=== PATIENT | female | born 1970 | race African-American/Black ===

== ENCOUNTER → 2016-07-10 | Outpatient (CLI) | payer OTHER ==
[~2016-07-10] MED LIST: BAYETES; CIPR-9 PO; CYCL1TAB29 PO; GABA300C5 PO; METH125I2 IM; SUCR1TAB PO; [UNRECOGNIZED DRUG - CODE] IM
[2016-07-10 10:06] LABS: AUTOMATED NEUTROPHIL # 2.1 TH/MM3 (1.8-7.7); BASOPHIL # 0.1 TH/MM3 (0-0.2); BASOPHIL % 2.5 % (0.0-2.0); EOSINOPHIL # 0.1 TH/MM3 (0-0.4); EOSINOPHIL % 2.9 % (0.0-4.0); HEMATOCRIT 37.2 % (35.0-46.0); HEMO FLAGS DIFF FINAL; LYMPH % 38.7 % (9.0-44.0); LYMPHOCYTE # 1.7 TH/MM3 (1.0-4.8); MEAN CELL VOLUME 89.7 FL (80.0-100.0); MEAN CORPUSCULAR HEMOGLOBIN 29.3 PG (27.0-34.0); MEAN CORPUSCULAR HGB CONC 32.7 % (32.0-36.0); MONO % 7.9 % (0.0-8.0); PLATELET COUNT 288 TH/MM3 (150-450); RED BLOOD COUNT 4.15 MIL/MM3 (4.00-5.30); RED CELL DISTRIBUTION WIDTH 15.3 % (11.6-17.2); WHITE BLOOD COUNT 4.4 TH/MM3 (4.0-11.0)
[2016-07-10 11:39] LABS: ALKALINE PHOSPHATASE 53 U/L (45-117); ALT (GPT) 17 U/L (10-53); ANION GAP 7 MEQ/L (5-15); AST (GOT) 24 U/L (15-37); BICARBONATE 30.9 MEQ/L (21.0-32.0); BLOOD UREA NITROGEN 16 MG/DL (7-18); CHLORIDE 99 MEQ/L (98-107); GLOMERULAR FILTRATION RATE 67 ML/MIN (>89); GLUCOSE,FASTING 73 MG/DL (74-99); HDL CHOLESTEROL 66.2 MG/DL (40.0-60.0); LDL CHOLESTEROL 99 MG/DL (0-99); POTASSIUM 4.6 MEQ/L (3.5-5.1); SODIUM (NA) 137 MEQ/L (136-145); TOTAL BILIRUBIN ADULT 0.2 MG/DL (0.2-1.0)
[2016-07-10 14:12] LABS: HEMOGLOBIN A1a 0.9 %; HEMOGLOBIN A1b 1.1 %; HEMOGLOBIN F 1.6 %; HEMOGLOBIN LA1C 2.2 %; HEMOGLOBIN P3 6.8 %
== END ==
LOC: CLAB 09:36
PROVIDERS: ATTEND Family Medicine
DX: R63.0 Anorexia (principal); F39 Unspecified mood [affective] disorder; R94.6 Abnormal results of thyroid function studies; R92.8 Other abnormal and inconclusive findings on diagnostic imaging of breast; R73.09 Other abnormal glucose; Z72.0 Tobacco use
CPT/HCPCS: 36415; 80053; 80061; 83036; 84443; 85025

== ENCOUNTER 2016-11-21 07:33 | Emergency (ER) | payer OTHER ==
[~2016-11-21] VITALS: Ht 170.2 cm; Wt 50.0 kg
[~2016-11-21 07:33] MED LIST changes: -CIPR-9 PO; -METH125I2 IM; -[UNRECOGNIZED DRUG - CODE] IM
[2016-11-21] MEDS ORDERED: IOHEXOL 350 MG/ML 10 ML VIAL (for RAD DIAG) IVCONTRAST ONE (07:34)
[2016-11-21 07:37] VITALS: BP 136/88; PULSE 86; RESP 14; TEMP 98.4; O2SAT 96
[2016-11-21] MEDS ORDERED: SODIUM CHLOR 0.9% 1000 ML INJ 1,000 ML IV SCH (08:07)
[2016-11-21] MEDS ORDERED: ONDANSETRON HCL 4 MG/2 ML VIAL IVP ONE (08:15)
[2016-11-21] MEDS ORDERED: MORPHINE SULFATE 4 MG/ML INJ IV PUSH ONE (08:15)
[2016-11-21] MEDS ORDERED: FAMOTIDINE 20 MG/2 ML VIAL IV PUSH ONE (08:15)
[2016-11-21] MEDS ORDERED: SODIUM CHLORIDE 0.9% FLUSH 10 ML FLUSH IV FLUSH PRN (08:15)
[2016-11-21 08:21] VITALS: RESP 18; O2SAT 98
[2016-11-21 08:29] LABS: AUTOMATED NEUTROPHIL # 2.6 TH/MM3 (1.8-7.7); BASOPHIL % 0.4 % (0.0-2.0); EOSINOPHIL # 0.3 TH/MM3 (0-0.4); EOSINOPHIL % 4.5 % (0.0-4.0); HEMATOCRIT 36.9 % (35.0-46.0); HEMO FLAGS DIFF FINAL; LYMPH % 36.8 % (9.0-44.0); MEAN CELL VOLUME 87.8 FL (80.0-100.0); MEAN CORPUSCULAR HEMOGLOBIN 28.5 PG (27.0-34.0); MEAN CORPUSCULAR HGB CONC 32.4 % (32.0-36.0); MONO % 11.9 % (0.0-8.0); NEUT % 46.4 % (16.0-70.0); PLATELET COUNT 321 TH/MM3 (150-450); RED BLOOD COUNT 4.21 MIL/MM3 (4.00-5.30); RED CELL DISTRIBUTION WIDTH 15.5 % (11.6-17.2); WHITE BLOOD COUNT 5.6 TH/MM3 (4.0-11.0)
[2016-11-21 08:44] LABS: BACTERIA, URINE RARE /hpf; BLOOD, URINE MOD (NEG); COMMENT (UR) CULT NOT INDICATED; CULTURE IF INDICATED CULT NOT INDICATED; GLUCOSE,URINE NEG (NEG); KETONE, URINE NEG (NEG); MUCUS URINE FEW /lpf (OCC); NITRITE,URINE NEG (NEG); PH, URINE 5.5 (5.0-8.5); SQUAMOUS EPITHELIAL CELL URINE 1 /hpf (0-5); URINE COLOR YELLOW (YELLW/STRAW)
--- NOTE | 2016-11-21 08:45 | PD ---
HPI . Abdominal pain and vomiting Chief Complaint: Respiratory Symptoms Time Seen by Provider: 08:07 Travel History International Travel<30 days: No Contact w/Intl Traveler<30days: No Traveled to known affect area: No History of Present Illness HPI The history that I got from the patient seems to be different than the history that the nurse obtained. The patient is chief complaint to me was abdominal pain and vomiting. Onset was a week ago. She reports 3 episodes of emesis since 2 AM. She states she's been having about 5 episodes of emesis a day for the last week. This is associated with severe upper abdominal pain. She denies diarrhea. She states that she cannot eat and that her food seems to be getting stuck in the top of her abdomen. She states that her pain is exacerbated by bending forward and her symptoms are relieved by isabella rm. She states that she has a previous history of peptic ulcer disease. Reports decreased urinary output during this past week. PFSH Past Medical History Anemia: Yes Depression: Yes Diminished Hearing: No Endocrine: Yes (hyperthyroid) Hypertension: Yes Immunizations Current: Yes Migraines: Yes Thyroid Disease: Yes (HYPERTHYROID) Ulcer: Yes ?: Not Menopausal: Yes : 0 Para: 0 Ovarian Cysts: Yes Past Surgical History Gynecologic Surgery: Yes (LT OVARIAN CYST) Hysterectomy: Yes Tonsillectomy: Yes Social History Alcohol Use: No (OCC) Tobacco Use: Yes (10 CIGARETTES A DAY ) Substance Use: No Allergies-Medications (Allergen,Severity, Reaction): Coded Allergies: acetaminophen (Verified Allergy, Severe, ABD PAIN, 11/21/16) hydrocodone (Verified Allergy, Severe, NAUSEA, 11/21/16) penicillin G (Verified Allergy, Severe, BLACK TONGUE, 11/21/16) BLACK TONUGE propoxyphene (Verified Allergy, Severe, ABD PAIN, 11/21/16) Reported Meds & Prescriptions Reported Meds & Active Scripts Active Gabapentin 300 Mg Cap 300 Mg PO TID [place] Contour Blood Glucose Strips (Blood Glucose Test Strips) 1 Jennifer Jennifer 1 Strip .ROUTE DIRECTED Reported Sucralfate 1 Gm Tab 1 Gm PO TID on empty stomach Review of Systems Except as stated in HPI: all other systems reviewed are Neg General / Constitutional: Positive: Fever, No: Chills HENT: Positive: Headaches Cardiovascular: No: Chest Pain or Discomfort Respiratory: No: Shortness of Breath Gastrointestinal: Positive: Nausea, Vomiting, Abdominal Pain, No: Diarrhea Genitourinary: Positive: Decreased Urinary Output, No: Urgency, Frequency, Dysuria Physical Exam Narrative GENERAL: Patient is awake and alert and does not appear to be in any acute distress. SKIN: warm/dry. No rashes. HEAD: Normocephalic. Atraumatic. EYES: Pupils equal and round. No scleral icterus. No injection or drainage. ENT: No nasal bleeding or discharge. Mucous membranes pink and moist. Her tongue is stained a blue color from recent Dion-Aid. NECK: Trachea midline. Full range of motion without pain.. CARDIOVASCULAR: Regular rate and rhythm. Heart sounds are normal. RESPIRATORY: No accessory muscle use. Clear to auscultation. Breath sounds equal bilaterally. GASTROINTESTINAL: Abdomen soft. Diffuse tenderness with maximal tenderness in the upper abdomen. Bowel sounds present. Nondistended. MUSCULOSKELETAL: No obvious deformities. NEUROLOGICAL: Awake and alert. No obvious cranial nerve deficits. Motor grossly within normal limits. Normal speech. PSYCHIATRIC: Appropriate mood and affect; insight and judgment normal. Data Data Last Documented VS Vital Signs Date Time Temp Pulse Resp B/P (MAP) Pulse Ox O2 Delivery O2 Flow Rate FiO2 11/21/16 08:21 18 98 Room Air 11/21/16 07:37 98.4 86 Orders Orders Complete Blood Count With Diff (11/21/16 08:07) Comprehensive Metabolic Panel (11/21/16 08:07) Lipase (11/21/16 08:07) Lactic Acid (11/21/16 08:07) Urinalysis - C+S If Indicated (11/21/16 08:07) Ct Abd/Pel W Iv Contrast(Rout) (11/21/16 08:07) Iv Access Insert/Monitor (11/21/16 08:07) Ecg Monitoring (11/21/16 08:07) Oximetry (11/21/16 08:07) Morphine Inj (Morphine Inj) (11/21/16 08:15) Ondansetron Inj (Zofran Inj) (11/21/16 08:15) Sodium Chlor 0.9% 1000 Ml Inj (Ns 1000 M (11/21/16 08:07) Sodium Chloride 0.9% Flush (Ns Flush) (11/21/16 08:15) Electrocardiogram (11/21/16 08:07) Famotidine Inj (Pepcid Inj) (11/21/16 08:15) Iohexol 350 Inj (Omnipaque 350 Inj) (11/21/16 07:34) Labs Laboratory Tests Test 11/21/16 08:20 White Blood Count 5.6 TH/MM3 Red Blood Count 4.21 MIL/MM3 Hemoglobin 12.0 GM/DL Hematocrit 36.9 % Mean Corpuscular Volume 87.8 FL Mean Corpuscular Hemoglobin 28.5 PG Mean Corpuscular Hemoglobin Concent 32.4 % Red Cell Distribution Width 15.5 % Platelet Count 321 TH/MM3 Mean Platelet Volume 7.3 FL Neutrophils (%) (Auto) 46.4 % Lymphocytes (%) (Auto) 36.8 % Monocytes (%) (Auto) 11.9 % Eosinophils (%) (Auto) 4.5 % Basophils (%) (Auto) 0.4 % Neutrophils # (Auto) 2.6 TH/MM3 Lymphocytes # (Auto) 2.0 TH/MM3 Monocytes # (Auto) 0.7 TH/MM3 Eosinophils # (Auto) 0.3 TH/MM3 Basophils # (Auto) 0.0 TH/MM3 CBC Comment DIFF FINAL Differential Comment Urine Color YELLOW Urine Turbidity CLEAR Urine pH 5.5 Urine Specific [place] 1.023 Urine Protein NEG mg/dL Urine Glucose (UA) NEG mg/dL Urine Ketones NEG mg/dL Urine Occult Blood MOD Urine Nitrite NEG Urine Bilirubin NEG Urine Urobilinogen LESS THAN 2.0 MG/DL Urine Leukocyte Esterase NEG Urine RBC 7 /hpf Urine WBC 1 /hpf Urine Squamous Epithelial Cells 1 /hpf Urine Bacteria RARE /hpf Urine Mucus FEW /lpf Microscopic Urinalysis Comment CULT NOT INDICATED Blood Urea Nitrogen 12 MG/DL Creatinine 1.05 MG/DL Random Glucose 82 MG/DL Total Protein 7.3 GM/DL Albumin 3.8 GM/DL Calcium Level 9.3 MG/DL Alkaline Phosphatase 64 U/L Aspartate Amino Transf (AST/SGOT) 22 U/L Alanine Aminotransferase (ALT/SGPT) 13 U/L Total Bilirubin 0.2 MG/DL Sodium Level 138 MEQ/L Potassium Level 3.6 MEQ/L Chloride Level 104 MEQ/L Carbon Dioxide Level 27.1 MEQ/L Anion Gap 7 MEQ/L Estimat Glomerular Filtration Rate 68 ML/MIN Lactic Acid Level 1.1 mmol/L Lipase 93 U/L [facility] Medical Decision Making Medical Screen Exam Complete: Yes Emergency Medical Condition: Yes Medical Record Reviewed: Yes (her main medical issues for which she is followed as an outpatient is prediabetes and malnutrition with a low BMI.) Interpretation(s) EKG shows a sinus rhythm with no acute ischemic change. Differential Diagnosis Differential diagnosis of abdominal pain includes but is not limited to gastritis, pancreatitis, hepatitis, gastroenteritis, gallbladder disease, constipation, urinary retention, UTI, peptic ulcer disease, diverticulitis or appendicitis Narrative Course This patient presents with upper abdominal pain and vomiting. She reports a history of previous peptic ulcer disease. She has been ill for 5 days and has not been tolerating by mouth food or fluids well. She reports a decreased urinary output. She is being fluid resuscitated pending her workup. CBC & BMP Diagram 11/21/16 08:20 Total Protein 7.3, Albumin 3.8, Calcium Level 9.3, Alkaline Phosphatase 64, Aspartate Amino Transf (AST/SGOT) 22, Alanine Aminotransferase (ALT/SGPT) 13, Total Bilirubin 0.2 LA is normal at 1.1. UA>>SG 1.023. No evidence of infection. CT abd/pelvis>>No evidence of inflammatory process within the abdomen or pelvis. No evidence of bowel obstruction. Diffusely noted groundglass opacities within the lung bases have resolved. No current abnormalities are noted. No acute problem has been identified by laboratory and radiographic evaluation. In the meantime, the patient reports that she is markedly symptomatically improved. Diagnosis Primary Impression: Abdominal pain Qualified Codes: R10.84 - Generalized abdominal pain Additional Impression: Vomiting Qualified Codes: R11.2 - Nausea with vomiting, unspecified Patient Instructions: Abdominal Pain (ED), Acute Nausea and Vomiting (DC), General Instructions Med/Other Pt SpecificInfo: Prescription(s) given Scripts Ranitidine (Zantac) 150 Mg Tab 150 MG PO BID for Reduce Stomach Acid, #60 TAB 0 Refills Prov: Tawanna Olvera MD 11/21/16 Promethazine (Phenergan) 25 Mg Tablet 25 MG PO Q6H Y for NAUSEA OR VOMITING, #15 TAB 0 Refills Prov: Tawanna Olvera MD 11/21/16 Disposition: 01 DISCHARGE HOME Condition: Stable Tawanna Olvera MD Nov 21, 2016 08:45
[2016-11-21 08:51] LABS: ALT (GPT) 13 U/L (10-53)
[2016-11-21 08:54] LABS: ALKALINE PHOSPHATASE 64 U/L (45-117); TOTAL BILIRUBIN ADULT 0.2 MG/DL (0.2-1.0)
[2016-11-21 09:05] LABS: ANION GAP 7 MEQ/L (5-15); AST (GOT) 22 U/L (15-37); BICARBONATE 27.1 MEQ/L (21.0-32.0); BLOOD UREA NITROGEN 12 MG/DL (7-18); CHLORIDE 104 MEQ/L (98-107); GLOMERULAR FILTRATION RATE 68 ML/MIN (>89); POTASSIUM 3.6 MEQ/L (3.5-5.1); SODIUM (NA) 138 MEQ/L (136-145)
--- NOTE | 2016-11-21 09:20 | RADRPT ---
EXAM DATE/TIME: 11/21/2016 08:51 [facility] COMPARISON: CT ABDOMEN & PELVIS W CONTRAST, December 18, 2015, 5:37. INDICATIONS : Nausea and vomiting for one week. IV CONTRAST: 71 cc Omnipaque 350 (iohexol) IV ORAL CONTRAST: No oral contrast ingested. RADIATION DOSE: 4.51 CTDIvol (mGy) MEDICAL HISTORY : Hypertension. SURGICAL HISTORY : Hysterectomy. ENCOUNTER: Initial ACUITY: 1 week PAIN SCALE: 4/10 LOCATION: Bilateral lower quadrant TECHNIQUE: Volumetric scanning of the abdomen and pelvis was performed. Using automated exposure control and adjustment of the mA and/or kV according to patient size, radiation dose was kept as low as reasonably achievable to obtain optimal diagnostic quality images. DICOM format image data is av ailable electronically for review and comparison. FINDINGS: LOWER LUNGS: The visualized lower lungs are clear. The previously noted groundglass opacities hav e resolved. LIVER: Homogeneous density without lesion. There is no dilation of the biliary tree. No calcifi ed gallstones. SPLEEN: Normal size without lesion. PANCREAS: Within normal limits. KIDNEYS: Normal in size and shape. There is no mass, stone or hydronephrosis. ADRENAL GLANDS: Within normal limits. VASCULAR: There is no aortic aneurysm. BOWEL/MESENTERY: The stomach, small bowel, and colon demonstrate no acute abnormality. There is no free intraperitoneal air or fluid. ABDOMINAL WALL: Within normal limits. RETROPERITONEUM: There is no lymphadenopathy. BLADDER: No wall thickening or mass. REPRODUCTIVE: Surgically absent. INGUINAL: There is no lymphadenopathy or hernia. MUSCULOSKELETAL: Within normal limits for patient age. CONCLUSION: No evidence of inflammatory process within the abdomen or pelvis. No evidence of daniel l obstruction. Diffusely noted groundglass opacities within the lung bases have resolved. No current abnormalities are noted. Marlena Buenrostro MD on November 21, 2016 at 9:16 Board Certified Radiologist. This report was verified electronically.
[2016-11-21] MEDS ORDERED: ZANT150T2 PO (09:42)
[2016-11-21] MEDS ORDERED: PROM25TA10 PO (09:42)
--- NOTE | 2016-11-21 11:38 | EKG ---
Date Performed: 11/21/2016 Time Performed: 08:17:04 PTAGE: 46 years EKG: Sinus rhythm POSSIBLE RIGHT VENTRICULAR CONDUCTION DELAY LEFT ANTERIOR FASCICULAR BLOCK ANTEROSEPTAL MYOCARDIAL I NFARCTION, AGE UNDETERMINED ABNORMAL ECG PREVIOUS TRACING : 12/18/2015 03.58 No significant change from previous tracing noted. DOCTOR: Albert Chanel Interpretating Date/Time 11/21/2016 11:36:36
== END 2016-11-21 10:08 | disposition home or self-care (01) ==
LOC: NEPC 07:33
DX: R10.84 Generalized abdominal pain (principal); R11.2 Nausea with vomiting, unspecified; K27.9 Peptic ulcer, site unspecified, unspecified as acute or chronic, without hemorrhage or perforation; R51 Headache; D64.9 Anemia, unspecified; I44.4 Left anterior fascicular block; R94.31 Abnormal electrocardiogram [ECG] [EKG]; E05.90 Thyrotoxicosis, unspecified without thyrotoxic crisis or storm; I10 Essential (primary) hypertension
CPT/HCPCS: 74177; 80053; 81001; 83605; 83690; 85025; 93005; 96361; 96374; 96375; 99285; J2270; J2405; J7030; Q9967

== ENCOUNTER 2017-01-05 01:29 | Inpatient (IN) | payer OTHER ==
[2017-01-05] VITALS (8 sets, daily range): BP systolic 110–136; BP diastolic 57–97; PULSE 79–122; RESP 16–26; TEMP 96.5–99.5; O2SAT 93–100
[~2017-01-05] VITALS: Ht 170.2 cm; Wt 58.0 kg
[~2017-01-05 01:29] MED LIST changes: -CYCL1TAB29 PO; +PROM25TA10 PO; +ZANT150T2 PO
--- NOTE | 2017-01-05 02:01 | PD ---
HPI Chief Complaint: Abdominal Pain Time Seen by Provider: 01:31 Travel History International Travel<30 days: No Contact w/Intl Traveler<30days: No Traveled to known affect area: No History of Present Illness HPI The patient is 46 year old female who presents to the [facility] emergency department with a history of chronic abdominal pain that became much worse last night. She reports that it feels like it is associated with shortness of breath as taking a deep breath makes it worse. She has had a stabbing pain in her abdomen on both sides that began 3 weeks ago. The pain is sharp in character. The pain is coming and going. She has had n/v associated with this. The pain seems to get worse at night. She is having n/v x3 per day since the onset. She had loose stool x3 yesterday. She reports having tinges of blood in her emesis and blood in her stool. The patient reports that the symptoms are similar to when she was first diagnosed with peptic ulcer disease in 2013. She reports that this is managed by her primary care physician up until a few months ago. She reports that she was told that she would need endoscopy, however she has never had endoscopy. She reports that she's been out of her usual medications for this for the last 3 months. She reports having a subjective fever. The patient reports that she has been taking BC powder for pain. She also tried taking a prescription for tramadol. On review of systems otherwise, she denies having any cough, congestion, neck pain, chest pain, dysuria, urinary frequency or urgency, or neurologic symptoms. She has been experiencing difficulty starting her stream of urine. [facility] Past Medical History Narrative Medical The patient's past medical history is significant for peptic ulcer disease, anemia, depression. She has a history of hyperthyroid disorder that is status post treatment. PCP: none currently. Anemia: Yes Depression: Yes Diminished Hearing: No Endocrine: Yes (hyperthyroid) Hypertension: Yes Immunizations Current: Yes Migraines: Yes Thyroid Disease: Yes (HYPERTHYROID) Ulcer: Yes Influenza Vaccination: No ?: Not Menopausal: Yes : 0 Para: 0 Ovarian Cysts: Yes Past Surgical History Narrative Surgical The patient's past surgical history is significant for a hysterectomy, left ovarian cyst resection, tonsillectomy. Gynecologic Surgery: Yes (LT OVARIAN CYST) Hysterectomy: Yes Tonsillectomy: Yes Social History Alcohol Use: No (OCC) Tobacco Use: Yes (10 CIGARETTES A DAY ) Substance Use: No Allergies-Medications (Allergen,Severity, Reaction): Coded Allergies: acetaminophen (Verified Allergy, Severe, ABD PAIN, 01/05/17) hydrocodone (Verified Allergy, Severe, NAUSEA, 01/05/17) penicillin G (Verified Allergy, Severe, BLACK TONGUE, 01/05/17) BLACK TONUGE propoxyphene (Verified Allergy, Severe, ABD PAIN, 01/05/17) Reported Meds & Prescriptions Reported Meds & Active Scripts Active Zantac (Ranitidine HCl) 150 Mg Tab 150 Mg PO BID Phenergan (Promethazine HCl) 25 Mg Tablet 25 Mg PO Q6H PRN Gabapentin 300 Mg Cap 300 Mg PO TID [place] Contour Blood Glucose Strips (Blood Glucose Test Strips) 1 Jennifer Jennifer 1 Strip .ROUTE DIRECTED Reported Sucralfate 1 Gm Tab 1 Gm PO TID on empty stomach Narrative Medication tramadol for pain. Review of Systems General / Constitutional: No: Fever Eyes: No: Visual changes HENT: No: Headaches, Congestion Cardiovascular: Positive: Dyspnea on exertion, No: Chest Pain or Discomfort Respiratory: Positive: Shortness of Breath, No: Cough Gastrointestinal: Positive: Nausea, Vomiting, Diarrhea, Abdominal Pain, Hematemesis, Hematochezia, Changes in Bowel Habits, Indigestion, Loss of Appetite Genitourinary: No: Dysuria Musculoskeletal: No: Pain Skin: No Rash Neurologic: No: Weakness, Focal Abnormalities, Change in Mentation, Slurred Speech, Sensory Disturbance Psychiatric: No: Depression Endocrine: No: Polydipsia Hematologic/Lymphatic: No: Easy Bruising Physical Exam Narrative General: The patient is a well-developed well-nourished female who arrives uncomfortable appearing on examination, holding her abdomen, writhing in the bed. Head and Neck exam: Head is normocephalic atraumatic. Eyes: EOMI, pupils are equal round and reactive to light. Nose: Midline septum with pink mucous membranes Mouth: Dentition unremarkable. Moist mucus membranes. Posterior oropharynx is not erythematous. No tonsillar hypertrophy. Uvula midline. Airway patent. Neck: No palpable lymphadenopathy. No nuchal rigidity. No thyromegaly. Cardiovascular: Sinus tachycardia in the 1 teens without murmurs, gallops, or rubs. No pulse deficit to the extremities and simultaneous auscultation and palpation of her radial artery. Lungs: Clear to auscultation bilaterally. No wheezes, rhonchi, or rales. Abdomen: Soft, with tenderness on palpation in bilateral upper and lower quadrants of the abdomen. No specific point tenderness over McBurney's point. The patient has voluntary guarding. No rebound or rigidity. Extremities: No clubbing, cyanosis, or edema. 2+ pulses in all 4 extremities. No calf tenderness on palpation. Back: No spinous process tenderness to palpation. The patient reports bilateral CVA tenderness on palpation Neurologic Exam: Grossly nonfocal. Skin Exam: No rash noted. Intact skin that is warm and dry. Data Data Last Documented VS Vital Signs Date Time Temp Pulse Resp B/P (MAP) Pulse Ox O2 Delivery O2 Flow Rate FiO2 01/05/17 05:36 79 18 127/78 (94) 96 Nasal Cannula 2.00 01/05/17 01:33 98.8 Orders Orders Electrocardiogram (01/05/17 02:04) Complete Blood Count With Diff (01/05/17 02:04) Comprehensive Metabolic Panel (01/05/17 02:04) Creatine Kinase (Cpk) (01/05/17 02:04) Ckmb (Isoenzyme) Profile (01/05/17 02:04) Troponin I (01/05/17 02:04) B-Type Natriuretic Peptide (01/05/17 02:04) Lipase (01/05/17 02:04) Urinalysis - C+S If Indicated (01/05/17 02:04) Magnesium (Mg) (01/05/17 02:04) Chest, Single Ap (01/05/17 02:04) Iv Access Insert/Monitor (01/05/17 02:04) Ecg Monitoring (01/05/17 02:04) Oximetry (01/05/17 02:04) Ed Urine Pregnancytest Poc (01/05/17 02:04) Drug Screen, Random Urine (01/05/17 02:24) Sodium Chlorid 0.9% 500 Ml Inj (Ns 500 M (01/05/17 02:30) Pantoprazole Inj (Protonix Inj) (01/05/17 02:30) Ondansetron Inj (Zofran Inj) (01/05/17 02:30) Thyroid Stimulating Hormone (01/05/17 02:25) Ct Abd/Pel W Iv Contrast(Rout) (01/05/17 03:00) Morphine Inj (Morphine Inj) (01/05/17 03:30) Iohexol 350 Inj (Omnipaque 350 Inj) (01/05/17 03:58) Levofloxacin 500 Mg Premix Inj (Levaquin (01/05/17 05:45) Metronidazole 500 Mg Inj (Flagyl 500 Mg (01/05/17 05:45) Diet Npo (01/05/17 Breakfast) Admit Order (Ed Use Only) (01/05/17 05:35) Sodium Chlor 0.9% 1000 Ml Inj (Ns 1000 M (01/05/17 05:45) Labs Laboratory Tests Test 01/05/17 02:25 01/05/17 02:55 White Blood Count 11.0 TH/MM3 Red Blood Count 4.57 MIL/MM3 Hemoglobin 13.6 GM/DL Hematocrit 40.5 % Mean Corpuscular Volume 88.7 FL Mean Corpuscular Hemoglobin 29.8 PG Mean Corpuscular Hemoglobin Concent 33.7 % Red Cell Distribution Width 15.4 % Platelet Count 293 TH/MM3 Mean Platelet Volume 7.8 FL Neutrophils (%) (Auto) 88.9 % Lymphocytes (%) (Auto) 8.0 % Monocytes (%) (Auto) 2.5 % Eosinophils (%) (Auto) 0.1 % Basophils (%) (Auto) 0.5 % Neutrophils # (Auto) 9.8 TH/MM3 Lymphocytes # (Auto) 0.9 TH/MM3 Monocytes # (Auto) 0.3 TH/MM3 Eosinophils # (Auto) 0.0 TH/MM3 Basophils # (Auto) 0.1 TH/MM3 CBC Comment DIFF FINAL Differential Comment Blood Urea Nitrogen 11 MG/DL Creatinine 1.05 MG/DL Random Glucose 107 MG/DL Total Protein 8.3 GM/DL Albumin 4.0 GM/DL Calcium Level 9.3 MG/DL Magnesium Level 1.7 MG/DL Alkaline Phosphatase 81 U/L Aspartate Amino Transf (AST/SGOT) 19 U/L Alanine Aminotransferase (ALT/SGPT) 12 U/L Total Bilirubin 0.1 MG/DL Sodium Level 137 MEQ/L Potassium Level 3.6 MEQ/L Chloride Level 102 MEQ/L Carbon Dioxide Level 27.6 MEQ/L Anion Gap 7 MEQ/L Estimat Glomerular Filtration Rate 68 ML/MIN Total Creatine Kinase 90 U/L Troponin I LESS THAN 0.02 NG/ML B-Type Natriuretic Peptide 17 PG/ML Lipase 101 U/L Thyroid Stimulating Hormone 3rd Gen 1.430 uIU/ML Urine Color YELLOW Urine Turbidity HAZY Urine pH 5.5 Urine Specific [place] 1.034 Urine Protein TRACE mg/dL Urine Glucose (UA) NEG mg/dL Urine Ketones TRACE mg/dL Urine Occult Blood LARGE Urine Nitrite NEG Urine Bilirubin NEG Urine Urobilinogen 2.0 MG/DL Urine Leukocyte Esterase TRACE Urine RBC 87 /hpf Urine WBC 1 /hpf Urine Squamous Epithelial Cells 2 /hpf Urine Amorphous Sediment RARE Urine Bacteria RARE /hpf Urine Mucus FEW /lpf Microscopic Urinalysis Comment CULT NOT INDICATED Urine Opiates Screen NEG Urine Barbiturates Screen NEG Urine Amphetamines Screen NEG Urine Benzodiazepines Screen NEG Urine Cocaine Screen NEG Urine Cannabinoids Screen NEG MDM Medical Decision Making Medical Screen Exam Complete: Yes Emergency Medical Condition: Yes Medical Record Reviewed: Yes Interpretation(s) Last Impressions Abdomen/Pelvis CT 01/05/17 0300 Signed Impressions: Service Date/Time: Thursday, January 05, 2017 03:56 - CONCLUSION: There is some free fluid scattered the abdomen and pelvis. There is some free air likely related to a small area of wall thickening in the distal stomach could be partially torn. Solid organs are unremarkable. Zac Cardoso MD Chest X-Ray 01/05/17 0204 Signed Impressions: Service Date/Time: Thursday, January 05, 2017 02:25 - CONCLUSION: Of both hemidiaphragms there is some air lucencies. On the right it is likely just colon. On the left side there some questionable air, could be free air. Zac Cardoso MD Differential Diagnosis Recurrence of peptic ulcer disease, versus gastritis, versus perforated bowel, versus pancreatitis, versus biliary colic, versus colitis Narrative Course During the course of the patients emergency department visit, the patients history, examination, and differential diagnosis were reviewed with the patient. The patient was placed on a cardiac cath rn with oximetry and frequent blood pressure monitoring. The patient had IV access obtained and blood work sent for analysis. The patient had an ECG done that shows no acute ST segment elevation. The patient was initially provided Protonix 40 mg IV, Zofran 4 mg IV, normal saline a 500 mL bolus and 4 mg of morphine for pain. The patients laboratory studies were reviewed and remarkable for a white count 11, hemoglobin 13.6, platelets 293 with 88.9 neutrophils. CMP is remarkable for creatinine of 1.05, glucose 107, total bilirubin 0.1, CPK 90, troponin I less than 0.02, BNP is 17, lipase 101, TSH 1.43, urinalysis shows trace ketones large blood trace leukocyte esterase 87 RBCs rare bacteria. Radiology studies were reviewed and remarkable for a chest x-ray that shows air underneath both diaphragms. The reading radiologist reported that on the right it is likely just in the colon, on the left there is some air lucency that could represent free air. CT scan of the abdomen and pelvis was done. CT scan reveals there is some free fluid scattered throughout the abdomen and pelvis there is some free air likely related to the small area of wall thickening in the distal stomach which could be partially torn. Solid organs are unremarkable. A call was placed out to the general surgeon on-call, Dr. Dunne. I spoke to him regarding this patient's case. He did agree to admit the patient and plans to come and see the patient urgently. He recommended that the patient be started on Levaquin and Flagyl IV. The patients results were discussed with the patient, including the plan of care. I explained that further testing and/ or monitoring is indicated based on the patients history, examination, and/ or laboratory findings. Therefore, I recommended admission for additional evaluation. The patient expressed understanding and was agreeable with this plan. The patient was admitted to the hospital in guarded condition and sent to a bed under the care of the general surgeon. Physician Communication Physician Communication The patient's case including history, pertinent physical examination findings, and laboratory studies were discussed with Dr. Dunne at 5:30 AM. It was agreed that the patient would be admitted to his service for additional evaluation and treatment. He requested that the patient be given a dose of Levaquin and Flagyl. The patient was made nothing by mouth. Diagnosis Primary Impression: Bowel perforation Admitting Information Admitting Physician Requests: Admit Mayra Ramesh MD Jan 05, 2017 02:01
[2017-01-05] MEDS ORDERED: ONDANSETRON HCL 4 MG/2 ML VIAL IV PUSH ONE (02:30)
[2017-01-05] MEDS ORDERED: PANTOPRAZOLE SODIUM 40 MG VIAL IV PUSH ONE (02:30)
[2017-01-05] MEDS ORDERED: SODIUM CHLORID 0.9% 500 ML INJ 500 ML IV ONE ×2 (02:30→12:30)
[2017-01-05 02:40] LABS: AUTOMATED NEUTROPHIL # 9.8 TH/MM3 (1.8-7.7); BASOPHIL # 0.1 TH/MM3 (0-0.2); BASOPHIL % 0.5 % (0.0-2.0); EOSINOPHIL % 0.1 % (0.0-4.0); HEMATOCRIT 40.5 % (35.0-46.0); HEMO FLAGS DIFF FINAL; LYMPHOCYTE # 0.9 TH/MM3 (1.0-4.8); MEAN CELL VOLUME 88.7 FL (80.0-100.0); MEAN CORPUSCULAR HEMOGLOBIN 29.8 PG (27.0-34.0); MEAN CORPUSCULAR HGB CONC 33.7 % (32.0-36.0); MONO % 2.5 % (0.0-8.0); NEUT % 88.9 % (16.0-70.0); PLATELET COUNT 293 TH/MM3 (150-450); RED BLOOD COUNT 4.57 MIL/MM3 (4.00-5.30); RED CELL DISTRIBUTION WIDTH 15.4 % (11.6-17.2)
--- NOTE | 2017-01-05 02:46 | RADRPT ---
EXAM DATE/TIME: 01/05/2017 02:25 [facility] COMPARISON: No previous studies available for comparison. INDICATIONS : Shortness of breath,cough. MEDICAL HISTORY : None. SURGICAL HISTORY : None. ENCOUNTER: Initial ACUITY: 1 day PAIN SCORE: 0/10 LOCATION: Bilateral chest FINDINGS: A single view of the chest demonstrates the lungs to be symmetrically aerated without evidence of mas s, infiltrate or effusion. Mild indistinctness of the left hemidiaphragm may represent some left lowe r lobe atelectasis. The cardiomediastinal contours are unremarkable. Osseous structures are intact. CONCLUSION: Of both hemidiaphragms there is some air lucencies. On the right it is likely just colon. On the left side there some questionable air, could be free air. Zac Cardoso MD on January 05, 2017 at 2:44 Board Certified Radiologist. This report was verified electronically.
[2017-01-05 03:12] LABS: BACTERIA, URINE RARE /hpf; BLOOD, URINE LARGE (NEG); GLUCOSE,URINE NEG (NEG); KETONE, URINE TRACE mg/dL (NEG); MUCUS URINE FEW /lpf (OCC); NITRITE,URINE NEG (NEG); PH, URINE 5.5 (5.0-8.5); SQUAMOUS EPITHELIAL CELL URINE 2 /hpf (0-5); URINE COLOR YELLOW (YELLW/STRAW)
[2017-01-05 03:17] LABS: COMMENT (UR) CULT NOT INDICATED; CULTURE IF INDICATED CULT NOT INDICATED
[2017-01-05 03:28] LABS: ALT (GPT) 12 U/L (10-53); ANION GAP 7 MEQ/L (5-15); AST (GOT) 19 U/L (15-37); BICARBONATE 27.6 MEQ/L (21.0-32.0); BLOOD UREA NITROGEN 11 MG/DL (7-18); CHLORIDE 102 MEQ/L (98-107); GLOMERULAR FILTRATION RATE 68 ML/MIN (>89); MAGNESIUM 1.7 MG/DL (1.5-2.5); POTASSIUM 3.6 MEQ/L (3.5-5.1); SODIUM (NA) 137 MEQ/L (136-145)
[2017-01-05] MEDS ORDERED: MORPHINE SULFATE 4 MG/ML INJ IV PUSH ONE (03:30)
[2017-01-05 03:38] LABS: ALKALINE PHOSPHATASE 81 U/L (45-117); TOTAL BILIRUBIN ADULT 0.1 MG/DL (0.2-1.0)
[2017-01-05] MEDS ORDERED: IOHEXOL 350 MG/ML 10 ML VIAL (for RAD DIAG) IVCONTRAST ONE (03:58)
[2017-01-05 04:06] LABS: CREATINE KINASE 90 U/L (26-192)
--- NOTE | 2017-01-05 04:57 | RADRPT ---
EXAM DATE/TIME: 01/05/2017 03:56 [facility] COMPARISON: No previous studies available for comparison. INDICATIONS : Diffuse abdominl pain with nausea and vomiting. IV CONTRAST: 75 cc Omnipaque 350 (iohexol) IV ORAL CONTRAST: No oral contrast ingested. RADIATION DOSE: 4.64 CTDIvol (mGy) MEDICAL HISTORY : Ulcers. Hypertension. Ovarian cysts. SURGICAL HISTORY : Hysterectomy. ENCOUNTER: Initial ACUITY: 1 day PAIN SCALE: 10/10 LOCATION: Bilateral abdomen TECHNIQUE: Volumetric scanning of the abdomen and pelvis was performed. Using automated exposure control and ad justment of the mA and/or kV according to patient size, radiation dose was kept as low as reasonably achievable to obtain optimal diagnostic quality images. DICOM format image data is available electro nically for review and comparison. FINDINGS: LOWER LUNGS: The visualized lower lungs are clear. LIVER: Homogeneous density without lesion. There is no dilation of the biliary tree. No calcified gallston es. There is some fluid around liver. No free air within the peritoneal cavity. SPLEEN: Normal size without lesion. PANCREAS: Within normal limits. KIDNEYS: Normal in size and shape. There is no mass, stone or hydronephrosis. ADRENAL GLANDS: Within normal limits. VASCULAR: There is no aortic aneurysm. BOWEL/MESENTERY: Some inhomogeneous involving the distal stomach and proximal duodenum The stomach, small bowel, and c olon demonstrate no acute abnormality. There is no free intraperitoneal air or fluid. ABDOMINAL WALL: Within normal limits. RETROPERITONEUM: There is no lymphadenopathy. BLADDER: No wall thickening or mass. REPRODUCTIVE: Within normal limits. INGUINAL: There is no lymphadenopathy or hernia. MUSCULOSKELETAL: Within normal limits for patient age. CONCLUSION: There is some free fluid scattered the abdomen and pelvis. There is some free air likely related to a small area of wall thickening in the distal stomach could be partially torn. Solid organs are unrema rkable. Zac Cardoso MD on January 05, 2017 at 4:52 Board Certified Radiologist. This report was verified electronically.
[2017-01-05] MEDS ORDERED: metroNIDAZOLE 500 MG INJ 100 ML IV ONE (05:45)
[2017-01-05] MEDS ORDERED: SODIUM CHLOR 0.9% 1000 ML INJ 1,000 ML IV SCH (05:45)
[2017-01-05] MEDS ORDERED: HYDROmorphone HCL PF 0.5 MG/0.5 ML SYRINGE IV PUSH ONE (05:45)
[2017-01-05] MEDS ORDERED: LEVOFLOXACIN 500 MG PREMIX INJ 100 ML IV ONE (05:45)
[2017-01-05] MEDS: SODIUM CHLOR 0.9% 1000 ML INJ 1,000 ML IV SCH ×2 (06:58→16:58)
[2017-01-05] MEDS ORDERED: SODIUM CHLORIDE 0.9% FLUSH 10 ML FLUSH IV FLUSH PRN (07:00)
[2017-01-05] MEDS ORDERED: FLUCONAZOLE 400 MG PREMIX BAG 200 ML IV ONE (07:00)
--- NOTE | 2017-01-05 07:13 | HHI.HP ---
[facility] Service General surgery Primary Care Physician Yuliana Gerard MD Admission Diagnosis Perforated Bowel Chief Complaint: Abdominal pain History of Present Illness The patient is a 46-year-old female who presents with severe generalized abdominal pain beginning last night. She has had a known history of peptic ulcer disease for about a year and a half and has in the past been on Carafate and PPIs. Recently she's been unable to obtain PPIs. She was recommended to have an outpatient endoscopy but was unfortunately unable to have this done. There was some financial constraints in her situation. She is on patient assistance. She's been having nausea and vomiting. Pain with deep breathing. She has had significant weight loss over the last 2 years going from around 125 pounds to now at 43 kg. She complains of both dysphagia and early satiety. She can only have a few bites of food before feeling full. Past surgical history includes total abdominal hysterectomy and umbilical hernia repair as a child. She has been using BC powder twice daily for pain. Review of Systems Constitutional: COMPLAINS OF: Weight loss, DENIES: Fever, Chills Eyes: DENIES: Eye inflammation, Eye pain Ears, nose, mouth, throat: DENIES: Oral lesions (dysphagia), Throat pain Respiratory: DENIES: Cough, Shortness of breath Cardiovascular: DENIES: Chest pain, Palpitations Gastrointestinal: COMPLAINS OF: Abdominal pain, Nausea, Vomiting, Difficulty Swallowing Musculoskeletal: DENIES: Back pain, Neck pain Integumentary: DENIES: Pruritus, Rash Neurologic: DENIES: Paresthesias, Seizures Past Family Social History Past Medical History Hyperthyroidism status post ablation Past Surgical History Total abdominal hysterectomy Umbilical hernia repair Reported Medications Reported Meds & Active Scripts Active Zantac (Ranitidine HCl) 150 Mg Tab 150 Mg PO BID Phenergan (Promethazine HCl) 25 Mg Tablet 25 Mg PO Q6H PRN Gabapentin 300 Mg Cap 300 Mg PO TID Etelvina Contour Blood Glucose Strips (Blood Glucose Test Strips) 1 Jennifer Jennifer 1 Strip .ROUTE DIRECTED Reported Sucralfate 1 Gm Tab 1 Gm PO TID on empty stomach Not currently on Zantac for PPI. Uses BC powder. Allergies: Coded Allergies: acetaminophen (Verified Allergy, Severe, ABD PAIN, 01/05/17) hydrocodone (Verified Allergy, Severe, NAUSEA, 01/05/17) penicillin G (Verified Allergy, Severe, BLACK TONGUE, 01/05/17) BLACK TONUGE propoxyphene (Verified Allergy, Severe, ABD PAIN, 01/05/17) Active Ordered Medications Current Medications Medications (Trade) Dose Ordered Sig/Khanh Route Start Time Stop Time Status Last Admin Sodium Chloride 1,000 ml @ 100 mls/hr Q10H IV 01/05/17 05:45 01/05/17 05:47 Family History Noncontributory Social History She smokes tobacco. No alcohol or drug use. Physical Exam Vital Signs Vital Signs Date Time Temp Pulse Resp B/P (MAP) Pulse Ox O2 Delivery O2 Flow Rate FiO2 01/05/17 06:34 98.7 107 18 123/57 (79) 98 Nasal Cannula 2.00 01/05/17 05:36 79 18 127/78 (94) 96 Nasal Cannula 2.00 01/05/17 02:07 97 Nasal Cannula 2.00 01/05/17 01:52 28 01/05/17 01:47 97 Nasal Cannula 2.00 01/05/17 01:33 98.8 112 26 136/97 (110) 93 Physical Exam GENERAL: Awake and alert. No acute distress. Cooperative. Very thin. HEAD: Normocephalic. Atraumatic. EYES: Pupils equal round and reactive to light bilaterally. No scleral icterus. CHEST: Lungs clear to auscultation bilaterally with no wheezing or rhonchi. No respiratory distress. CARDIOVASCULAR: Regular rate and rhythm. ABDOMEN: Mild distention. Lower transverse scar. Umbilical scar with basically no more umbilicus. Positive rebound tenderness in the right lower quadrant. Moderate tenderness in the right upper and epigastrium. Mildly tender in the left abdomen. No guarding. EXTREMITIES: No cyanosis or edema. SKIN: Warm, dry, nonjaundiced. Laboratory Laboratory Tests Test 01/05/17 02:25 01/05/17 02:55 White Blood Count 11.0 Red Blood Count 4.57 Hemoglobin 13.6 Hematocrit 40.5 Mean Corpuscular Volume 88.7 Mean Corpuscular Hemoglobin 29.8 Mean Corpuscular Hemoglobin Concent 33.7 Red Cell Distribution Width 15.4 Platelet Count 293 Mean Platelet Volume 7.8 Neutrophils (%) (Auto) 88.9 Lymphocytes (%) (Auto) 8.0 Monocytes (%) (Auto) 2.5 Eosinophils (%) (Auto) 0.1 Basophils (%) (Auto) 0.5 Neutrophils # (Auto) 9.8 Lymphocytes # (Auto) 0.9 Monocytes # (Auto) 0.3 Eosinophils # (Auto) 0.0 Basophils # (Auto) 0.1 CBC Comment DIFF FINAL Differential Comment Blood Urea Nitrogen 11 Creatinine 1.05 Random Glucose 107 Total Protein 8.3 Albumin 4.0 Calcium Level 9.3 Magnesium Level 1.7 Alkaline Phosphatase 81 Aspartate Amino Transf (AST/SGOT) 19 Alanine Aminotransferase (ALT/SGPT) 12 Total Bilirubin 0.1 Sodium Level 137 Potassium Level 3.6 Chloride Level 102 Carbon Dioxide Level 27.6 Anion Gap 7 Estimat Glomerular Filtration Rate 68 Total Creatine Kinase 90 Troponin I LESS THAN 0.02 B-Type Natriuretic Peptide 17 Lipase 101 Thyroid Stimulating Hormone 3rd Gen 1.430 Urine Color YELLOW Urine Turbidity HAZY Urine pH 5.5 Urine Specific [place] 1.034 Urine Protein TRACE Urine Glucose (UA) NEG Urine Ketones TRACE Urine Occult Blood LARGE Urine Nitrite NEG Urine Bilirubin NEG Urine Urobilinogen 2.0 Urine Leukocyte Esterase TRACE Urine RBC 87 Urine WBC 1 Urine Squamous Epithelial Cells 2 Urine Amorphous Sediment RARE Urine Bacteria RARE Urine Mucus FEW Microscopic Urinalysis Comment CULT NOT INDICATED Urine Opiates Screen NEG Urine Barbiturates Screen NEG Urine Amphetamines Screen NEG Urine Benzodiazepines Screen NEG Urine Cocaine Screen NEG Urine Cannabinoids Screen NEG Result Diagram: 01/05/1722401/05/17224 Imaging Last Impressions Abdomen/Pelvis CT 01/05/17 0300 Signed Impressions: Service Date/Time: Thursday, January 05, 2017 03:56 - CONCLUSION: There is some free fluid scattered the abdomen and pelvis. There is some free air likely related to a small area of wall thickening in the distal stomach could be partially torn. Solid organs are unremarkable. Zac Cardoso MD Chest X-Ray 01/05/17 0204 Signed Impressions: Service Date/Time: Thursday, January 05, 2017 02:25 - CONCLUSION: Of both hemidiaphragms there is some air lucencies. On the right it is likely just colon. On the left side there some questionable air, could be free air. MD Davis Matta VTE Risk Assessment Capgala VTE Risk Assessment: No/Low Risk (score <= 1) Caprini Risk Assessment Model Point Value = 1 Point Value = 2 Point Value = 3 Point Value = 5 Age 41-60 Minor surgery BMI > 25 kg/m2 Swollen legs Varicose veins or History of unexplained or recurrent spontaneous Oral contraceptives or hormone replacement Sepsis (< 1 month) Serious lung disease, including pneumonia (< 1 month) Abnormal pulmonary function Acute myocardial infarction Congestive heart failure (< 1 month) History of inflammatory bowel disease Medical patient at bed rest Age 61-74 Arthroscopic surgery Major open surgery (> 45 min) Laparoscopic surgery (> 45 min) Malignancy Confined to bed (> 72 hours) Immobilizing plaster cast Central venous access Age >= 75 History of VTE Family history of VTE Factor V Leiden Prothrombin [id number] Lupus anticoagulant Anticardiolipin antibodies Elevated serum homocysteine Heparin-induced thrombocytopenia Other congenital or acquired thrombophilia Stroke (< 1 month) Elective arthroplasty Hip, pelvis, or leg fracture Acute spinal cord injury (< 1 month) Prophylaxis Regimen Total Risk Factor Score Risk Level Prophylaxis Regimen 0-1 Low Early ambulation 2 Moderate Order ONE of the following: *Sequential Compression Device (SCD) *Heparin 5000 units SQ BID 3-4 Higher Order ONE of the following medications: *Heparin 5000 units SQ TID *Enoxaparin/Lovenox 40 mg SQ daily (WT < 150 kg, CrCl > 30 mL/min) *Enoxaparin/Lovenox 30 mg SQ daily (WT < 150 kg, CrCl > 10-29 mL/min) *Enoxaparin/Lovenox 30 mg SQ BID (WT < 150 kg, CrCl > 30 mL/min) AND/OR *Sequential Compression Device (SCD) 5 or more Highest Order ONE of the following medications: *Heparin 5000 units SQ TID (Preferred with Epidurals) *Enoxaparin/Lovenox 40 mg SQ daily (WT < 150 kg, CrCl > 30 mL/min) *Enoxaparin/Lovenox 30 mg SQ daily (WT < 150 kg, CrCl > 10-29 mL/min) *Enoxaparin/Lovenox 30 mg SQ BID (WT < 150 kg, CrCl > 30 mL/min) AND *Sequential Compression Device (SCD) Assessment and Plan Assessment and Plan Perforated peptic ulcer- known history of peptic ulcer disease. NSAID use. Currently unable to afford antacid medication. She has peritonitis in the right lower abdomen but does not have generalized peritonitis. She does not appear ill. There's minimal to moderate free fluid with minimal free air. She may have sealed the perforation already. At this time I'm going to attempt nonoperative management and treat her with Levaquin, Flagyl, and Diflucan. I will reevaluate her later today. Protonix IV twice a day and Carafate. Weight loss, dysphagia, early satiety-likely related to above. She needs an endoscopy in the next 4-6 weeks. Romaine Dunne MD Jan 05, 2017 07:13
[2017-01-05] MEDS ORDERED: HYDROmorphone HCL PF 0.5 MG/0.5 ML SYRINGE IV PUSH PRN (07:15)
[2017-01-05] MEDS: SODIUM CHLORIDE 0.9% FLUSH 10 ML FLUSH IV FLUSH SCH ×2 (09:00→22:44)
[2017-01-05] MEDS: SUCRALFATE 1 GM/10 ML CUP PO SCH ×3 (09:34→20:10)
--- NOTE | 2017-01-05 12:30 | HHI.PR ---
Subjective Subjective Notes Still with significant abdominal pain but somewhat improved from this morning. Objective Vitals/I&O Vital Signs Date Time Temp Pulse Resp B/P (MAP) Pulse Ox O2 Delivery O2 Flow Rate FiO2 01/05/17 11:44 96.5 122 19 130/59 (82) 96 01/05/17 06:34 Nasal Cannula 2.00 Labs Laboratory Tests Test 01/05/17 02:25 01/05/17 02:55 White Blood Count 11.0 Red Blood Count 4.57 Hemoglobin 13.6 Hematocrit 40.5 Mean Corpuscular Volume 88.7 Mean Corpuscular Hemoglobin 29.8 Mean Corpuscular Hemoglobin Concent 33.7 Red Cell Distribution Width 15.4 Platelet Count 293 Mean Platelet Volume 7.8 Neutrophils (%) (Auto) 88.9 Lymphocytes (%) (Auto) 8.0 Monocytes (%) (Auto) 2.5 Eosinophils (%) (Auto) 0.1 Basophils (%) (Auto) 0.5 Neutrophils # (Auto) 9.8 Lymphocytes # (Auto) 0.9 Monocytes # (Auto) 0.3 Eosinophils # (Auto) 0.0 Basophils # (Auto) 0.1 CBC Comment DIFF FINAL Differential Comment Blood Urea Nitrogen 11 Creatinine 1.05 Random Glucose 107 Total Protein 8.3 Albumin 4.0 Calcium Level 9.3 Magnesium Level 1.7 Alkaline Phosphatase 81 Aspartate Amino Transf (AST/SGOT) 19 Alanine Aminotransferase (ALT/SGPT) 12 Total Bilirubin 0.1 Sodium Level 137 Potassium Level 3.6 Chloride Level 102 Carbon Dioxide Level 27.6 Anion Gap 7 Estimat Glomerular Filtration Rate 68 Total Creatine Kinase 90 Troponin I LESS THAN 0.02 B-Type Natriuretic Peptide 17 Lipase 101 Thyroid Stimulating Hormone 3rd Gen 1.430 Urine Color YELLOW Urine Turbidity HAZY Urine pH 5.5 Urine Specific [place] 1.034 Urine Protein TRACE Urine Glucose (UA) NEG Urine Ketones TRACE Urine Occult Blood LARGE Urine Nitrite NEG Urine Bilirubin NEG Urine Urobilinogen 2.0 Urine Leukocyte Esterase TRACE Urine RBC 87 Urine WBC 1 Urine Squamous Epithelial Cells 2 Urine Amorphous Sediment RARE Urine Bacteria RARE Urine Mucus FEW Microscopic Urinalysis Comment CULT NOT INDICATED Urine Opiates Screen NEG Urine Barbiturates Screen NEG Urine Amphetamines Screen NEG Urine Benzodiazepines Screen NEG Urine Cocaine Screen NEG Urine Cannabinoids Screen NEG Radiology Last Impressions Abdomen/Pelvis CT 01/05/17 0300 Signed Impressions: Service Date/Time: Thursday, January 05, 2017 03:56 - CONCLUSION: There is some free fluid scattered the abdomen and pelvis. There is some free air likely related to a small area of wall thickening in the distal stomach could be partially torn. Solid organs are unremarkable. Zac Cardoso MD Chest X-Ray 01/05/17 020 Signed Impressions: Service Date/Time: Thursday, January 05, 2017 02:25 - CONCLUSION: Of both hemidiaphragms there is some air lucencies. On the right it is likely just colon. On the left side there some questionable air, could be free air. Zac Cardoso MD Narrative Exam Appears uncomfortable CV: sinus tachycardia Abdomen: + rebound right abdomen, worst in RLQ; mod ttp left abdomen A/P Assessment and Plan 46 yo F with perforated peptic ulcer. Tachycardic. Pain stable. Bolus 500cc NS. Continue IV antibiotics. Increase dilaudid dosage. Place NG to DEMETRIO. Romaine Dunne MD Jan 05, 2017 12:30
[2017-01-05] MEDS: metroNIDAZOLE 500 MG INJ 100 ML IV SCH ×2 (14:00→22:39)
[2017-01-05] MEDS: HYDROmorphone HCL PF 1 MG/ML VIAL IV PUSH PRN ×4 (14:00→22:39)
--- NOTE | 2017-01-05 14:08 | EKG ---
Date Performed: 01/05/2017 Time Performed: 02:19:52 PTAGE: 46 years EKG: Sinus rhythm POSSIBLE RIGHT VENTRICULAR CONDUCTION DELAY LEFT ANTERIOR FASCICULAR BLOCK ABNORMAL ECG PREVIOUS TRACING : 11/21/2016 08.17 Compared to prior tracing no significant change DOCTOR: Kristopher Hudson Interpretating Date/Time 01/05/2017 14:04:23
[2017-01-05] MEDS: ALPRAZolam 0.25 MG TAB PO PRN (20:10)
[2017-01-06 00:28] VITALS: BP 104/75; PULSE 98; RESP 16; TEMP 99.1; O2SAT 100
[2017-01-06] MEDS: SODIUM CHLOR 0.9% 1000 ML INJ 1,000 ML IV SCH ×4 (02:58→22:58)
[2017-01-06 04:30] VITALS: BP 116/75; PULSE 97; RESP 16; TEMP 99.4; O2SAT 100
[2017-01-06] MEDS: metroNIDAZOLE 500 MG INJ 100 ML IV SCH ×3 (05:30→21:02)
[2017-01-06] MEDS: LEVOFLOXACIN 500 MG PREMIX INJ 100 ML IV SCH (07:29)
[2017-01-06 07:45] VITALS: BP 139/80; PULSE 97; RESP 19; TEMP 98.7; O2SAT 94
[2017-01-06] MEDS: HYDROmorphone HCL PF 1 MG/ML VIAL IV PUSH PRN ×3 (08:48→21:08)
[2017-01-06] MEDS: FLUCONAZOLE 200 MG PREMIX BAG 100 ML IV SCH (08:49)
[2017-01-06 08:55] LABS: HEMATOCRIT 37.6 % (35.0-46.0); MEAN CELL VOLUME 90.5 FL (80.0-100.0); MEAN CORPUSCULAR HEMOGLOBIN 29.1 PG (27.0-34.0); MEAN CORPUSCULAR HGB CONC 32.2 % (32.0-36.0); PLATELET COUNT 218 TH/MM3 (150-450); RED BLOOD COUNT 4.15 MIL/MM3 (4.00-5.30); RED CELL DISTRIBUTION WIDTH 15.4 % (11.6-17.2)
[2017-01-06] MEDS: SUCRALFATE 1 GM/10 ML CUP PO SCH ×4 (08:56→21:02)
[2017-01-06] MEDS: SODIUM CHLORIDE 0.9% FLUSH 10 ML FLUSH IV FLUSH SCH ×2 (09:00→21:00)
[2017-01-06 09:03] LABS: BICARBONATE 25.4 MEQ/L (21.0-32.0); POTASSIUM 3.5 MEQ/L (3.5-5.1)
[2017-01-06 09:08] LABS: HEMO FLAGS AUTO DIFF
[2017-01-06] MEDS ORDERED: INFLUENZA VIRUS VACCINE (QUADRIVALENT) 0.5 ML SYR IM ONE (10:00)
[2017-01-06] MEDS ORDERED: PNEUMOCOCCAL POLYVALENT INJ 25 MCG/0.5 ML SYR IM ONE (10:00)
[2017-01-06 10:27] LABS: BASOPHILS 1 % (0-2); NEUTROPHIL # MANUAL DIFF 10.1 TH/MM3 (1.8-7.7); PLATELET ESTIMATE SMEAR NORMAL (NORMAL); PLATELET MORPHOLOGY NORMAL (NORMAL); POLYS (SEG NEUTROPHILS) 92 % (16-70); SCAN/DIFF FINAL DIFF MANUAL; WBC DIFF SAMPLE 100
--- NOTE | 2017-01-06 10:45 | HHI.PR ---
Subjective Subjective Notes C/o persistent severe pain, worst in epigastrium and right lower abdomen. Objective Vitals/I&O Vital Signs Date Time Temp Pulse Resp B/P (MAP) Pulse Ox O2 Delivery O2 Flow Rate FiO2 01/06/17 09:20 16 01/06/17 07:45 98.7 97 139/80 (99) 94 01/05/17 06:34 Nasal Cannula 2.00 Labs Laboratory Tests Test 01/06/17 07:41 White Blood Count 11.0 Red Blood Count 4.15 Hemoglobin 12.1 Hematocrit 37.6 Mean Corpuscular Volume 90.5 Mean Corpuscular Hemoglobin 29.1 Mean Corpuscular Hemoglobin Concent 32.2 Red Cell Distribution Width 15.4 Platelet Count 218 Mean Platelet Volume 7.7 CBC Comment AUTO DIFF Differential Total Cells Counted 100 Neutrophils % (Manual) 92 Lymphocytes % 3 Monocytes % 4 Basophils % 1 Neutrophils # (Manual) 10.1 Differential Comment FINAL DIFF MANUAL Platelet Estimate NORMAL Platelet Morphology Comment NORMAL Red Cell Morphology Comment NORMAL Blood Urea Nitrogen 15 Creatinine 0.78 Random Glucose 73 Calcium Level 8.8 Sodium Level 138 Potassium Level 3.5 Chloride Level 104 Carbon Dioxide Level 25.4 Anion Gap 9 Estimat Glomerular Filtration Rate 95 Radiology Last Impressions Abdomen/Pelvis CT 01/05/17 0300 Signed Impressions: Service Date/Time: Thursday, January 05, 2017 03:56 - CONCLUSION: There is some free fluid scattered the abdomen and pelvis. There is some free air likely related to a small area of wall thickening in the distal stomach could be partially torn. Solid organs are unremarkable. Zac Cardoso MD Chest X-Ray 01/05/17 0204 Signed Impressions: Service Date/Time: Thursday, January 05, 2017 02:25 - CONCLUSION: Of both hemidiaphragms there is some air lucencies. On the right it is likely just colon. On the left side there some questionable air, could be free air. Zac Cardoso MD Narrative Exam Appears uncomfortable CV: mild sinus tachycardia Abdomen: + rebound epigastrium and right abdomen, worst in RLQ; mod ttp left abdomen A/P Assessment and Plan 46 yo F with perforated peptic ulcer. She is failing non op management due to persistent severe abdominal pain with peritonitis. Will proceed to OR for lap possible open repair of perforated ulcer. Discussed in detail with her and she desires to proceed SALAS. Romaine Dunne MD Jan 06, 2017 10:45
[2017-01-06] MEDS ORDERED: HYDROmorphone HCL PF 2 MG/ML VIAL ONE (10:54)
[2017-01-06] MEDS ORDERED: SUGAMMADEX SODIUM 200 MG/2 ML VIAL IV PUSH ONE ×2 (10:55)
[2017-01-06] MEDS: ACETAMINOPHEN 1000 MG/100 ML 100 ML IV SCH ×3 (11:00→22:14)
[2017-01-06] MEDS ORDERED: BUPIVACAINE/EPINEPHRINE 0.25% PF 30 ML VIAL ONE (11:36)
[2017-01-06 12:00] VITALS: BP 139/72; PULSE 97; RESP 19; TEMP 98.6; O2SAT 95
[2017-01-06] MEDS ORDERED: ROCURONIUM INJ 50 MG/5 ML SYRINGE IV PUSH ONE (12:00)
[2017-01-06] MEDS ORDERED: MIDAZOLAM HCL 2 MG/2 ML VIAL IV ONE (12:00)
[2017-01-06] MEDS ORDERED: PROPOFOL 200 MG/20 ML AMP IV ONE (12:00)
[2017-01-06] MEDS ORDERED: ESMOLOL HCL 100 MG/10 ML VIAL IV ONE (12:00)
[2017-01-06] MEDS ORDERED: ONDANSETRON HCL 4 MG/2 ML VIAL IV PUSH ONE (12:00)
[2017-01-06] MEDS ORDERED: DEXAMETHASONE SOD PHOS 4 MG/ML VIAL IV ONE (12:00)
[2017-01-06] MEDS ORDERED: PHENOL 1.4% SOLN 180 ML BTL OROPHARYNG PRN (13:30)
--- NOTE | 2017-01-06 13:40 | PD.OP ---
cc: Romaine Dunne MD Operative Report Date of Surgery: Jan 06, 2017 Preoperative Diagnosis: (1) Perforated peptic ulcer Postoperative Diagnosis: (1) Perforated peptic ulcer Procedure: Laparoscopic repair of perforated peptic ulcer Anesthesia: LISA Surgeon: Romaine Dunne Comic Writer(s): Bill GABRIELLE Operation and Findings: EBL: 5cc Operative findings: Exudative material in the epigastrium, some cloudy fluid in RLQ and pelvis. Subcentimeter prepyloric ulcer clean edges. Repair with single 3-0 silk suture and omental patch. Procedure in detail: The patient was taken to the operating room and placed in the supine position. Gen. endotracheal anesthesia was induced and the abdomen was prepped and draped in usual sterile fashion. A surgical timeout was performed to verify correct patient procedure and site. Local anesthetic was injected in the skin and subcutaneous tissue in the left abdomen inferior to the umbilicus and a 5 mm incision made. A 5 mm port was then placed under direct laparoscopic visualization and the abdomen was insufflated to 15 mmHg with CO2 gas which the patient tolerated well. A 5 mm port was placed in the left upper abdomen in the right midabdomen. Attention was turned to the upper abdomen and there is a significant amount of exudate and cloudy fluid in the upper abdomen. The exudative material was freed and suctioned from the abdomen. The liver was stuck to the stomach and was carefully . A fourth 5 mm port was placed in the right upper lateral abdomen and comfort flex liver retractor placed to elevate the liver. The stomach was carefully evaluated especially in the antrum in the pyloric area and around the gallbladder. After careful inspection there was noted to be a subcentimeter prepyloric ulcer with clean edges. The mucosa was able to be visualized. This was closed with a single 3-0 silk suture laparoscopically with full-thickness bite. Omentum was grasped and a tongue of omentum was created using the Harmonic scalpel. This was secured in place over the ulcer site with the tails from the previous suture. A 19 Wallisian round drain was placed in the right lateral abdominal port site and positioned under the liver bed just above the ulcer site. The entire abdomen was copiously irrigated with normal saline using the suction-memory care director. At this point the trochars were removed and the abdomen allowed to desufflate. The drain was secured in place with 3-0 nylon suture. Skin closed with subcuticular 4-0 Monocryl and Dermabond. The patient tolerated the procedure well was extubated and taken to PACU in stable condition. Romaine Dunne MD Jan 06, 2017 13:39
[2017-01-06 16:00] VITALS: BP 118/76; PULSE 88; RESP 16; TEMP 98.5; O2SAT 94
[2017-01-06 19:30] VITALS: BP 113/82; PULSE 89; RESP 17; TEMP 98.7; O2SAT 93
[2017-01-07] MEDS: HYDROmorphone HCL PF 1 MG/ML VIAL IV PUSH PRN ×4 (00:43→10:18)
[2017-01-07 04:00] VITALS: BP 150/86; PULSE 85; RESP 19; TEMP 96.4; O2SAT 96
[2017-01-07] MEDS: ACETAMINOPHEN 1000 MG/100 ML 100 ML IV SCH ×4 (04:04→23:00)
[2017-01-07] MEDS: metroNIDAZOLE 500 MG INJ 100 ML IV SCH ×3 (05:27→21:27)
[2017-01-07] MEDS: LEVOFLOXACIN 500 MG PREMIX INJ 100 ML IV SCH (06:17)
[2017-01-07] MEDS: FLUCONAZOLE 200 MG PREMIX BAG 100 ML IV SCH (07:27)
[2017-01-07 08:00] VITALS: PULSE 86; RESP 16; TEMP 96.4; O2SAT 94
[2017-01-07] MEDS: SODIUM CHLOR 0.9% 1000 ML INJ 1,000 ML IV SCH ×2 (08:58→18:58)
[2017-01-07] MEDS: SODIUM CHLORIDE 0.9% FLUSH 10 ML FLUSH IV FLUSH SCH ×2 (09:00→21:26)
[2017-01-07] MEDS: SUCRALFATE 1 GM/10 ML CUP PO SCH ×4 (10:16→21:27)
[2017-01-07] MEDS ORDERED: oxyCODONE/ACETAMINOPHEN 5 MG/325 MG TAB PO PRN (11:45)
--- NOTE | 2017-01-07 12:02 | HHI.PR ---
Subjective Subjective Notes Pain is improved but still present. Objective Vitals/I&O Vital Signs Date Time Temp Pulse Resp B/P (MAP) Pulse Ox O2 Delivery O2 Flow Rate FiO2 01/07/17 08:00 96.4 86 16 94 01/06/17 14:30 Nasal Cannula 2 Radiology Last Impressions Abdomen/Pelvis CT 01/05/17 0300 Signed Impressions: Service Date/Time: Thursday, January 05, 2017 03:56 - CONCLUSION: There is some free fluid scattered the abdomen and pelvis. There is some free air likely related to a small area of wall thickening in the distal stomach could be partially torn. Solid organs are unremarkable. Zac Cardoso MD Chest X-Ray 01/05/17 0204 Signed Impressions: Service Date/Time: Thursday, January 05, 2017 02:25 - CONCLUSION: Of both hemidiaphragms there is some air lucencies. On the right it is likely just colon. On the left side there some questionable air, could be free air. Zac Cardoso MD Narrative Exam NAD CV: RRR Abdomen: mild distention, post op ttp, inc c/d/i; aaron ss output Sheriff lisa urine A/P Assessment and Plan 46 yo F with perforated peptic ulcer, failed non op management now POD 1 s/p lap repair and farhan patch. Stable post op. D/c sheriff. OOB to chair and ambulate. Percocet, dilaudid prn Ice chips for comfort. Cont IV antibiotics. UzairRomaine MD Jan 07, 2017 12:02
[2017-01-07 12:03] VITALS: BP 123/81; PULSE 73; RESP 16; TEMP 97.9; O2SAT 96
[2017-01-07] MEDS: oxyCODONE/ACETAMINOPHEN 5 MG/325 MG TAB PO PRN ×3 (12:18→21:26)
[2017-01-07 16:50] VITALS: BP 154/91; PULSE 88; RESP 16; TEMP 98.2; O2SAT 100
[2017-01-07 19:00] VITALS: BP 135/83; PULSE 73; RESP 16; TEMP 98.5; O2SAT 95
[2017-01-08] VITALS: BP 135/81; PULSE 76; RESP 15; TEMP 98.3; O2SAT 97
[2017-01-08] MEDS: metroNIDAZOLE 500 MG INJ 100 ML IV SCH ×4 (00:19→21:27)
[2017-01-08] MEDS: ACETAMINOPHEN 1000 MG/100 ML 100 ML IV SCH ×5 (00:21→23:00)
[2017-01-08] MEDS: oxyCODONE/ACETAMINOPHEN 5 MG/325 MG TAB PO PRN ×4 (03:27→21:39)
[2017-01-08] MEDS: SODIUM CHLOR 0.9% 1000 ML INJ 1,000 ML IV SCH ×2 (04:58→14:58)
[2017-01-08] MEDS: SUCRALFATE 1 GM/10 ML CUP PO SCH ×4 (06:27→21:27)
[2017-01-08] MEDS: LEVOFLOXACIN 500 MG PREMIX INJ 100 ML IV SCH (06:28)
[2017-01-08] MEDS: FLUCONAZOLE 200 MG PREMIX BAG 100 ML IV SCH (07:10)
[2017-01-08 08:00] VITALS: BP 149/58; PULSE 80; RESP 17; TEMP 96.7; O2SAT 99
[2017-01-08] MEDS: SODIUM CHLORIDE 0.9% FLUSH 10 ML FLUSH IV FLUSH SCH ×2 (08:22→21:26)
[2017-01-08] MEDS: ALPRAZolam 0.25 MG TAB PO PRN (08:55)
[2017-01-08 12:00] VITALS: BP 156/90; PULSE 95; RESP 17; TEMP 98.2; O2SAT 97
[2017-01-08] MEDS: HYDROmorphone HCL PF 1 MG/ML VIAL IV PUSH PRN ×2 (12:29→18:32)
[2017-01-08] MEDS: ONDANSETRON HCL 4 MG/2 ML VIAL IV PUSH PRN ×2 (12:35→18:31)
--- NOTE | 2017-01-08 14:49 | HHI.PR ---
Subjective Subjective Notes Had one episode emesis when ng clamped. + flatus. Overall doing well. Objective Vitals/I&O Vital Signs Date Time Temp Pulse Resp B/P (MAP) Pulse Ox O2 Delivery O2 Flow Rate FiO2 01/08/17 12:00 98.2 95 17 156/90 (112) 97 01/06/17 14:30 Nasal Cannula 2 Radiology Last Impressions Abdomen/Pelvis CT 01/05/17 0300 Signed Impressions: Service Date/Time: Thursday, January 05, 2017 03:56 - CONCLUSION: There is some free fluid scattered the abdomen and pelvis. There is some free air likely related to a small area of wall thickening in the distal stomach could be partially torn. Solid organs are unremarkable. Zac Cardoso MD Chest X-Ray 01/05/17 0204 Signed Impressions: Service Date/Time: Thursday, January 05, 2017 02:25 - CONCLUSION: Of both hemidiaphragms there is some air lucencies. On the right it is likely just colon. On the left side there some questionable air, could be free air. Zac Cardoso MD Narrative Exam NAD CV: RRR Abdomen: mild distention, post op ttp, inc c/d/i; aaron ss output A/P Assessment and Plan 46 yo F with perforated peptic ulcer, failed non op management now POD 2 s/p lap repair and farhan patch. Stable post op. + flatus. OOB to chair and ambulate. Percocet, dilaudid prn Ice chips for comfort. Cont IV antibiotics. UGI in am Romaine Dunne MD Jan 08, 2017 14:49
[2017-01-08 16:00] VITALS: BP 143/92; PULSE 85; RESP 17; TEMP 98; O2SAT 99
[2017-01-08 20:00] VITALS: BP 132/88; PULSE 70; RESP 18; TEMP 98.2; O2SAT 95
[2017-01-08] MEDS: ZOLPIDEM TARTRATE 10 MG TAB PO PRN (21:39)
[2017-01-09] VITALS: BP 127/78; PULSE 74; RESP 18; TEMP 97.8; O2SAT 100
[2017-01-09] MEDS: SODIUM CHLOR 0.9% 1000 ML INJ 1,000 ML IV SCH ×3 (00:58→20:23)
[2017-01-09] MEDS: ACETAMINOPHEN 1000 MG/100 ML 100 ML IV SCH (04:57)
[2017-01-09] MEDS: oxyCODONE/ACETAMINOPHEN 5 MG/325 MG TAB PO PRN ×3 (04:59→21:59)
[2017-01-09] MEDS: metroNIDAZOLE 500 MG INJ 100 ML IV SCH ×3 (05:00→21:59)
[2017-01-09] MEDS: LEVOFLOXACIN 500 MG PREMIX INJ 100 ML IV SCH (05:00)
[2017-01-09] MEDS: FLUCONAZOLE 200 MG PREMIX BAG 100 ML IV SCH (07:40)
[2017-01-09 08:00] VITALS: BP 133/82; PULSE 86; RESP 19; TEMP 98; O2SAT 96
[2017-01-09] MEDS: SODIUM CHLORIDE 0.9% FLUSH 10 ML FLUSH IV FLUSH SCH ×2 (09:00→20:22)
[2017-01-09] MEDS: SUCRALFATE 1 GM/10 ML CUP PO SCH ×4 (09:10→20:22)
[2017-01-09] MEDS: ONDANSETRON HCL 4 MG/2 ML VIAL IV PUSH PRN (09:10)
[2017-01-09 12:00] VITALS: BP 130/81; PULSE 78; RESP 18; TEMP 98.1; O2SAT 96
[2017-01-09] MEDS ORDERED: DIATRIZOATE MEGLUM/DIATRIZOATE SOD 120 ML BTL (for RAD DIAG) NG ONE (12:43)
--- NOTE | 2017-01-09 12:48 | RADRPT ---
EXAM DATE/TIME: 01/09/2017 12:11 [facility] COMPARISON: CT ABDOMEN & PELVIS W CONTRAST, January 05, 2017, 3:56. INDICATIONS : Post op perforated ulcer repair FLUORO TIME: 0.5 minutes IMAGE COUNT: 11 CONTRAST: 1. MD Ribeiro MEDICAL HISTORY : Ulcers. Hypertension. Ovarian cysts. SURGICAL HISTORY : Hysterectomy. ENCOUNTER: Initial ACUITY: 3 days PAIN SCORE: 5/10 LOCATION: Bilateral upper quadrant FINDINGS: Gastroview contrast was administered by NG tube. There is a mucosal irregularity and luminal narrowin g of the duodenal bulb consistent with the patient's history of ulcer with recent repair. Contrast pa sses this area without delay. No evidence of leak. CONCLUSION: Mucosal irregularity and narrowing of the duodenal bulb likely representing postopera tive edema. No evidence of obstruction or leak. Tim Raya MD on January 09, 2017 at 12:42 Board Certified Radiologist. This report was verified electronically.
--- NOTE | 2017-01-09 12:53 | HHI.PR ---
Subjective Subjective Notes Continues to feel better. Just underwent UGI. Objective Vitals/I&O Vital Signs Date Time Temp Pulse Resp B/P (MAP) Pulse Ox O2 Delivery O2 Flow Rate FiO2 01/09/17 08:00 98.0 86 19 133/82 (99) 96 01/06/17 14:30 Nasal Cannula 2 Radiology Last Impressions Abdomen/Pelvis CT 01/05/17 0300 Signed Impressions: Service Date/Time: Thursday, January 05, 2017 03:56 - CONCLUSION: There is some free fluid scattered the abdomen and pelvis. There is some free air likely related to a small area of wall thickening in the distal stomach could be partially torn. Solid organs are unremarkable. Zac Cardoso MD Chest X-Ray 01/05/17 0204 Signed Impressions: Service Date/Time: Thursday, January 05, 2017 02:25 - CONCLUSION: Of both hemidiaphragms there is some air lucencies. On the right it is likely just colon. On the left side there some questionable air, could be free air. Zac Cardoso MD Narrative Exam NAD CV: RRR Abdomen: mild distention, post op ttp, inc c/d/i; aaron serous output A/P Assessment and Plan 46 yo F with perforated peptic ulcer, failed non op management now POD 3 s/p lap repair and farhan patch. Stable post op. + flatus. UGI without obstruction or leak. D/c NGT. Clears. OOB to chair and ambulate. Percocet, dilaudid prn Cont IV antibiotics. DVT proph: SCDs. Lovenox. UzairRomaine MD Jan 09, 2017 12:53
[2017-01-09] MEDS: ENOXAPARIN SODIUM 40 MG/0.4 ML SYRINGE SQ SCH (14:00)
[2017-01-09 16:00] VITALS: BP 131/81; PULSE 65; RESP 18; TEMP 97.6; O2SAT 96
[2017-01-09 20:31] VITALS: BP 135/78; PULSE 73; RESP 18; TEMP 98.8; O2SAT 98
[2017-01-09] MEDS: ZOLPIDEM TARTRATE 10 MG TAB PO PRN (22:08)
[2017-01-10] MEDS: metroNIDAZOLE 500 MG INJ 100 ML IV SCH ×3 (05:00→20:06)
[2017-01-10] MEDS: oxyCODONE/ACETAMINOPHEN 5 MG/325 MG TAB PO PRN ×2 (05:02→14:29)
[2017-01-10] MEDS: LEVOFLOXACIN 500 MG PREMIX INJ 100 ML IV SCH (05:19)
[2017-01-10] MEDS: SODIUM CHLOR 0.9% 1000 ML INJ 1,000 ML IV SCH ×2 (06:58→16:41)
[2017-01-10 08:00] VITALS: BP 135/82; PULSE 67; RESP 18; TEMP 98.1; O2SAT 96
[2017-01-10] MEDS: SODIUM CHLORIDE 0.9% FLUSH 10 ML FLUSH IV FLUSH SCH ×2 (08:07→20:06)
[2017-01-10] MEDS: FLUCONAZOLE 200 MG PREMIX BAG 100 ML IV SCH (08:07)
[2017-01-10] MEDS: SUCRALFATE 1 GM/10 ML CUP PO SCH ×4 (08:07→20:06)
[2017-01-10 08:26] LABS: BICARBONATE 26.7 MEQ/L (21.0-32.0); POTASSIUM 3.1 MEQ/L (3.5-5.1)
[2017-01-10 12:00] VITALS: BP 131/81; PULSE 65; RESP 18; TEMP 98.6; O2SAT 96
--- NOTE | 2017-01-10 13:31 | HHI.PR ---
Subjective Subjective Notes She is tolerating some liquids. Pain is controlled. Still feels bloated. Objective Vitals/I&O Vital Signs Date Time Temp Pulse Resp B/P (MAP) Pulse Ox O2 Delivery O2 Flow Rate FiO2 01/10/17 08:00 98.1 67 18 135/82 (99) 96 01/06/17 14:30 Nasal Cannula 2 Labs Laboratory Tests Test 01/10/17 07:26 Blood Urea Nitrogen 14 Creatinine 0.55 Random Glucose 109 Calcium Level 8.2 Sodium Level 139 Potassium Level 3.1 Chloride Level 104 Carbon Dioxide Level 26.7 Anion Gap 8 Estimat Glomerular Filtration Rate 143 Radiology Last Impressions Abdomen/Pelvis CT 01/05/17 0300 Signed Impressions: Service Date/Time: Thursday, January 05, 2017 03:56 - CONCLUSION: There is some free fluid scattered the abdomen and pelvis. There is some free air likely related to a small area of wall thickening in the distal stomach could be partially torn. Solid organs are unremarkable. Zac Cardoso MD Chest X-Ray 01/05/17 0204 Signed Impressions: Service Date/Time: Thursday, January 05, 2017 02:25 - CONCLUSION: Of both hemidiaphragms there is some air lucencies. On the right it is likely just colon. On the left side there some questionable air, could be free air. Zac Cardoso MD Narrative Exam NAD CV: RRR Abdomen: mild distention, post op ttp, inc c/d/i; aaron serous output A/P Assessment and Plan 46 yo F with perforated peptic ulcer, failed non op management now POD 4 s/p lap repair and farhan patch. Stable post op. + flatus. UGI without obstruction or leak. Fulls and boost. Protonix BID and zantac QHS OOB to chair and ambulate. Percocet, dilaudid prn Cont IV antibiotics. DVT proph: SCDs. Lovenox. Anticipate d/c next 24-48 hrs. Romaine Dunne MD Jan 10, 2017 13:31
[2017-01-10] MEDS: ENOXAPARIN SODIUM 40 MG/0.4 ML SYRINGE SQ SCH (14:29)
[2017-01-10 16:00] VITALS: BP 128/87; PULSE 78; RESP 18; TEMP 98.2; O2SAT 99
[2017-01-10] MEDS: FAMOTIDINE 20 MG TAB PO SCH (20:06)
[2017-01-10] MEDS: PANTOPRAZOLE SOD 40 MG DELAYED RELEASE TAB PO SCH (20:06)
[2017-01-10 20:08] VITALS: BP 154/95; PULSE 81; RESP 17; TEMP 97.8; O2SAT 99
[2017-01-10] MEDS: ZOLPIDEM TARTRATE 10 MG TAB PO PRN (20:13)
[2017-01-11] MEDS: SODIUM CHLOR 0.9% 1000 ML INJ 1,000 ML IV SCH ×3 (01:42→22:58)
[2017-01-11] MEDS: metroNIDAZOLE 500 MG INJ 100 ML IV SCH (06:04)
[2017-01-11] MEDS: oxyCODONE/ACETAMINOPHEN 5 MG/325 MG TAB PO PRN ×4 (06:06→20:19)
[2017-01-11] MEDS: FLUCONAZOLE 200 MG PREMIX BAG 100 ML IV SCH (06:06)
[2017-01-11] MEDS: LEVOFLOXACIN 500 MG PREMIX INJ 100 ML IV SCH (06:07)
[2017-01-11] MEDS: FAMOTIDINE 20 MG TAB PO SCH ×2 (07:41→20:15)
[2017-01-11] MEDS: SUCRALFATE 1 GM/10 ML CUP PO SCH ×4 (07:41→20:15)
[2017-01-11] MEDS: PANTOPRAZOLE SOD 40 MG DELAYED RELEASE TAB PO SCH ×2 (07:41→20:15)
[2017-01-11] MEDS: SODIUM CHLORIDE 0.9% FLUSH 10 ML FLUSH IV FLUSH SCH ×2 (07:44→20:15)
[2017-01-11 08:00] VITALS: BP 176/99; PULSE 84; RESP 18; TEMP 99; O2SAT 95
--- NOTE | 2017-01-11 11:42 | HHI.PR ---
Subjective Subjective Notes She is tolerating some liquids but not well. Still feels nausea, decreased appetite, regurgitation. Objective Vitals/I&O Vital Signs Date Time Temp Pulse Resp B/P (MAP) Pulse Ox O2 Delivery O2 Flow Rate FiO2 01/11/17 08:00 99.0 84 18 176/99 (124) 95 Radiology Last Impressions Abdomen/Pelvis CT 01/05/17 0300 Signed Impressions: Service Date/Time: Thursday, January 05, 2017 03:56 - CONCLUSION: There is some free fluid scattered the abdomen and pelvis. There is some free air likely related to a small area of wall thickening in the distal stomach could be partially torn. Solid organs are unremarkable. Zac Cardoso MD Chest X-Ray 01/05/17 0204 Signed Impressions: Service Date/Time: Thursday, January 05, 2017 02:25 - CONCLUSION: Of both hemidiaphragms there is some air lucencies. On the right it is likely just colon. On the left side there some questionable air, could be free air. Zac Cardoso MD Narrative Exam NAD CV: RRR Abdomen: mild distention, post op ttp, inc c/d/i; aaron serous output A/P Assessment and Plan 46 yo F with perforated peptic ulcer, failed non op management now POD 5 s/p lap repair and farhan patch. Stable post op. + BM. Some difficulty tolerating clears and fulls. Fulls and boost. Protonix BID and zantac OOB to chair and ambulate. Percocet, dilaudid prn D/c diflucan. Levaquin/flagyl PO. DVT proph: SCDs. Lovenox. D/c AARON drain. UzairRomaine MD Jan 11, 2017 11:42
[2017-01-11 12:00] VITALS: BP 141/95; PULSE 73; RESP 19; TEMP 98.5; O2SAT 100
[2017-01-11] MEDS: POTASSIUM CHLOR 20 MEQ PREMIX 100 ML IV SCH ×2 (12:49→14:59)
[2017-01-11] MEDS: ENOXAPARIN SODIUM 40 MG/0.4 ML SYRINGE SQ SCH (14:59)
[2017-01-11] MEDS: metroNIDAZOLE 500 MG TAB PO SCH ×2 (15:01→20:15)
[2017-01-11 15:05] VITALS: BP 180/82; PULSE 81; RESP 18; TEMP 98.9; O2SAT 100
[2017-01-11 19:00] VITALS: BP 153/93; PULSE 80; RESP 17; TEMP 97.7; O2SAT 98
[2017-01-11] MEDS: ZOLPIDEM TARTRATE 10 MG TAB PO PRN (20:15)
[2017-01-12] VITALS: BP 149/80; PULSE 70; RESP 16; TEMP 97.6; O2SAT 96
[2017-01-12 04:00] VITALS: BP 142/83; PULSE 70; RESP 17; TEMP 99.3; O2SAT 97
[2017-01-12] MEDS: metroNIDAZOLE 500 MG TAB PO SCH ×2 (04:28→12:55)
[2017-01-12] MEDS: oxyCODONE/ACETAMINOPHEN 5 MG/325 MG TAB PO PRN (04:33)
[2017-01-12 05:07] LABS: AUTOMATED NEUTROPHIL # 3.4 TH/MM3 (1.8-7.7); BASOPHIL # 0.1 TH/MM3 (0-0.2); BASOPHIL % 1.3 % (0.0-2.0); EOSINOPHIL # 0.1 TH/MM3 (0-0.4); EOSINOPHIL % 2.1 % (0.0-4.0); HEMATOCRIT 34.1 % (35.0-46.0); HEMO FLAGS DIFF FINAL; LYMPH % 19.5 % (9.0-44.0); MEAN CELL VOLUME 88.2 FL (80.0-100.0); MEAN CORPUSCULAR HEMOGLOBIN 28.3 PG (27.0-34.0); MEAN CORPUSCULAR HGB CONC 32.1 % (32.0-36.0); MONO % 13.5 % (0.0-8.0); NEUT % 63.6 % (16.0-70.0); PLATELET COUNT 425 TH/MM3 (150-450); RED BLOOD COUNT 3.87 MIL/MM3 (4.00-5.30); RED CELL DISTRIBUTION WIDTH 15.1 % (11.6-17.2); WHITE BLOOD COUNT 5.3 TH/MM3 (4.0-11.0)
[2017-01-12 08:00] VITALS: BP 159/95; PULSE 91; RESP 16; TEMP 98.4; O2SAT 97
[2017-01-12] MEDS: SUCRALFATE 1 GM/10 ML CUP PO SCH ×2 (08:52→12:54)
[2017-01-12] MEDS: PANTOPRAZOLE SOD 40 MG DELAYED RELEASE TAB PO SCH (08:52)
[2017-01-12] MEDS: FAMOTIDINE 20 MG TAB PO SCH (08:52)
[2017-01-12] MEDS: ALPRAZolam 0.25 MG TAB PO PRN (08:52)
[2017-01-12] MEDS: SODIUM CHLORIDE 0.9% FLUSH 10 ML FLUSH IV FLUSH SCH (08:53)
[2017-01-12] MEDS: SODIUM CHLOR 0.9% 1000 ML INJ 1,000 ML IV SCH (08:58)
[2017-01-12] MEDS ORDERED: LEVOFLOXACIN 750 MG TAB PO SCH (09:00)
[2017-01-12] MEDS ORDERED: OMEP40CA2 PO (10:08)
[2017-01-12] MEDS ORDERED: AMBI10TA PO (10:08)
[2017-01-12] MEDS ORDERED: OXYC1TAB63 PO (10:08)
--- NOTE | 2017-01-12 10:14 | HHI.DS ---
Discharge Summary Admission Date Jan 05, 2017 at 05:37 Discharge Date: Jan 12, 2017 Admitting Diagnosis Perforated Bowel Procedures Lap repair of perforated peptic ulcer Brief History The patient is a 46-year-old female who presents with severe generalized abdominal pain beginning last night. She has had a known history of peptic ulcer disease for about a year and a half and has in the past been on Carafate and PPIs. Recently she's been unable to obtain PPIs. She was recommended to have an outpatient endoscopy but was unfortunately unable to have this done. There was some financial constraints in her situation. She is on patient assistance. She's been having nausea and vomiting. Pain with deep breathing. She has had significant weight loss over the last 2 years going from around 125 pounds to now at 43 kg. She complains of both dysphagia and early satiety. She can only have a few bites of food before feeling full. Past surgical history includes total abdominal hysterectomy and umbilical hernia repair as a child. She has been using BC powder twice daily for pain. CBC/BMP: 01/12/17 0442 01/10/17 0726 Significant Findings Laboratory Tests Test 01/10/17 07:26 01/12/17 04:42 Random Glucose 109 MG/DL (74-106) Calcium Level 8.2 MG/DL (8.5-10.1) Potassium Level 3.1 MEQ/L (3.5-5.1) Red Blood Count 3.87 MIL/MM3 (4.00-5.30) Hemoglobin 11.0 GM/DL (11.6-15.3) Hematocrit 34.1 % (35.0-46.0) Mean Platelet Volume 6.8 FL (7.0-11.0) Monocytes (%) (Auto) 13.5 % (0.0-8.0) PE at Discharge NAD CV: RRR Abdomen: mild distention, post op ttp, inc c/d/i Hospital Course Initial trial of non op management of perf peptic ulcer failed and she underwent above procedure. Post op she has done well. NGT and then JORGE drain were able to be removed after UGI showed no leak or obstruction. She has some nausea and early satiety but overall is tolerating fulls. D/c home. Pt Condition on Discharge: Good Discharge Disposition: Discharge Home Discharge Instructions DIET: Follow Instructions for: Soft Diet Activities you can perform: See Additionl Instruction Other Activity Instructions: Ok to shower. Follow up Referrals: Surgical - 10 Days with Romaine Dunne MD New Medications: Omeprazole (Omeprazole) 40 Mg Cap 40 MG PO BID for ULCER, #60 CAP 0 Refills Zolpidem (Ambien) 10 Mg Tab 10 MG PO HS PRN for INSOMNIA, #30 TAB 0 Refills Oxycodone HCl/Acetaminophen (Oxycodone-Acetaminophen 5-325) 5 Mg-325 Mg Tablet 1-2 TAB PO Q4H PRN for PAIN, #30 TAB Continued Medications: Gabapentin (Gabapentin) 300 Mg Cap 300 MG PO TID, #90 CAP 3 Refills Glucose Blood Strips (Imsys Contour Blood Glucose Strips) 1 Jennifer Jennifer 1 STRIP .ROUTE DIRECTED for Blood Sugar Management, #30 BOX 6 Refills Promethazine (Phenergan) 25 Mg Tablet 25 MG PO Q6H PRN for NAUSEA OR VOMITING, #15 TAB 0 Refills Ranitidine (Zantac) 150 Mg Tab 150 MG PO BID for Reduce Stomach Acid, #60 TAB 0 Refills Sucralfate (Sucralfate) 1 Gm Tab 1 GM PO TID for Duodenal ulcer, #90 TAB 0 Refills on empty stomach Romaine Dunne MD Jan 12, 2017 10:14
== END 2017-01-12 14:38 | disposition home or self-care (01) | DRG 326 ==
LOC: NEPC 01:29 → NEDA 05:37 → N06A 08:28
PROVIDERS: ADMIT Surgery; ATTEND Surgery
PROC: 0DU647Z Supplement Stomach with Autologous Tissue Substitute, Percutaneous Endoscopic Approach (ICD-10-PCS; 2017-01-06)
PROC: 0DQ64ZZ Repair Stomach, Percutaneous Endoscopic Approach (ICD-10-PCS; principal; 2017-01-06 11:53)
DX: K25.5 Chronic or unspecified gastric ulcer with perforation (principal); K65.9 Peritonitis, unspecified; R63.4 Abnormal weight loss; Z68.20 Body mass index [BMI] 20.0-20.9, adult; Z87.11 Personal history of peptic ulcer disease; Z88.5 Allergy status to narcotic agent; Z88.0 Allergy status to penicillin; Z88.8 Allergy status to other drugs, medicaments and biological substances; Z23 Encounter for immunization
CPT/HCPCS: 71010; 74177; 74240; 80048; 80053; 80307; 81001; 82550; 83690; 83735; 83880; 84443; 84484; 84703; 85007; 85025; 85027; 90471; 90472; 90686; 90732; 93005; 96361; 96374; 96375; J1170; C9113; G0008; G0009; J0131; J1100; J1450; J1650; J1956; J2250; J2270; J2405; J3010; J3480; J7030; J7040; Q2038; Q9963; Q9967

== ENCOUNTER 2017-05-10 11:05 | Emergency (ER) | payer OTHER ==
[~2017-05-10] VITALS: Ht 170.2 cm; Wt 50.5 kg
[~2017-05-10 11:05] MED LIST changes: +AMBI10TA PO; +OMEP40CA2 PO; +OXYC1TAB63 PO
[2017-05-10 11:10] VITALS: BP 161/72; PULSE 104; RESP 18; TEMP 99.2; O2SAT 99
[2017-05-10] MEDS ORDERED: CYCL10TA PO (11:30)
[2017-05-10] MEDS ORDERED: OMEP40CA2 PO (11:56)
[2017-05-10] MEDS ORDERED: AZIT250T3 PO (11:56)
--- NOTE | 2017-05-10 11:56 | PD ---
HPI Chief Complaint: ENT Complaint Time Seen by Provider: 11:17 Travel History International Travel<30 days: No Contact w/Intl Traveler<30days: No Traveled to known affect area: No History of Present Illness HPI This is a 47-year-old female here for evaluation of bilateral ear pain left greater than right times several weeks but increasing the last several days. She is also reporting mild sore throat. She is requesting refill of her omeprazole for treatment of her GERD. He denies fever or chills. No difficulty swallowing. Severity is moderate. No aggravating or relieving factors PFSH Past Medical History Anemia: Yes Depression: Yes Diminished Hearing: No Endocrine: Yes (hyperthyroid) Hypertension: Yes Immunizations Current: Yes Migraines: Yes Thyroid Disease: Yes (HYPERTHYROID) Ulcer: Yes Influenza Vaccination: Yes ?: Not Menopausal: Yes : 0 Para: 0 Ovarian Cysts: Yes Past Surgical History Gynecologic Surgery: Yes (LT OVARIAN CYST) Hysterectomy: Yes Tonsillectomy: Yes Other Surgery: Yes (THYROID WAS "ZAPPED" IN 12/2016) Social History Alcohol Use: No Tobacco Use: Yes (10 CIGARETTES A DAY ) Substance Use: No Allergies-Medications (Allergen,Severity, Reaction): Coded Allergies: acetaminophen (Verified Allergy, Severe, ABD PAIN, 05/10/17) hydrocodone (Verified Allergy, Severe, NAUSEA, 05/10/17) penicillin G (Verified Allergy, Severe, BLACK TONGUE, 05/10/17) BLACK TONUGE propoxyphene (Verified Allergy, Severe, ABD PAIN, 05/10/17) Reported Meds & Prescriptions Reported Meds & Active Scripts Active Omeprazole 40 Mg Cap 40 Mg PO DAILY Azithromycin 250 Mg Tab 250 Mg PO DIRECTED Take 2 tabs (500 mg) on day 1 then 1 tab daily x 4 days. Ambien (Zolpidem Tartrate) 10 Mg Tab 10 Mg PO HS PRN Omeprazole 40 Mg Cap 40 Mg PO BID Reported Flexeril (Cyclobenzaprine HCl) 10 Mg Tab 10 Mg PO DAILY Review of Systems Except as stated in HPI: all other systems reviewed are Neg General / Constitutional: No: Fever Eyes: No: Visual changes HENT: Positive: Sore Throat, Earache Cardiovascular: No: Chest Pain or Discomfort Respiratory: No: Shortness of Breath Gastrointestinal: No: Abdominal Pain Genitourinary: No: Dysuria Physical Exam Narrative GENERAL: Alert well-appearing 47-year-old female. SKIN: Warm and dry. HEAD: Normocephalic. EYES: No injection or drainage. Ear/nose/throat: Cerumen impaction on the left. TM erythema, bulging, loss land can. No canal swelling. No mastoid tenderness. Mild pharyngeal erythema without tonsillar hypertrophy or exudate. Uvula is midline. Airway is patent NECK: Supple, trachea midline. No JVD or lymphadenopathy. CARDIOVASCULAR: Regular rate and rhythm without murmurs, gallops, or rubs. RESPIRATORY: Breath sounds equal bilaterally. No accessory muscle use. Data Data Last Documented VS Vital Signs Date Time Temp Pulse Resp B/P (MAP) Pulse Ox O2 Delivery O2 Flow Rate FiO2 05/10/17 11:10 99.2 104 18 161/72 (101) 99 Orders Orders Ear Irrigation (05/10/17 11:35) [facility] Medical Decision Making Medical Screen Exam Complete: Yes Emergency Medical Condition: Yes Differential Diagnosis Cerumen impaction, otitis media, pharyngitis Narrative Course 47-year-old female here with cerumen impaction, otitis media, medication refill. Cerumen impaction was irrigated. TM intact post-irrigation. She is allergic to penicillin and will be given prescription for azithromycin for otitis media Diagnosis Primary Impression: Cerumen impaction Qualified Codes: H61.22 - Impacted cerumen, left ear Additional Impression: Otitis media Qualified Codes: H66.90 - Otitis media, unspecified, unspecified ear Referrals: [facility] Scripts Omeprazole (Omeprazole) 40 Mg Cap 40 MG PO DAILY, #30 CAP 0 Refills Prov: Monica Perla 05/10/17 Azithromycin (Azithromycin) 250 Mg Tab 250 MG PO DIRECTED for Infection, #6 TAB 0 Refills Take 2 tabs (500 mg) on day 1 then 1 tab daily x 4 days. Prov: Monica Perla 05/10/17 Disposition: 01 DISCHARGE HOME Condition: Stable oMnica Perla May 10, 2017 11:56
== END 2017-05-10 12:56 | disposition home or self-care (01) ==
LOC: PHEFT 11:05
DX: H61.22 Impacted cerumen, left ear (principal); H66.90 Otitis media, unspecified, unspecified ear; F17.210 Nicotine dependence, cigarettes, uncomplicated
CPT/HCPCS: 99283